=== PATIENT | male | born 1935 ===

== ENCOUNTER 2018-03-09 12:19 | Emergency (ER) | payer MEDICAID, MEDICARE ==
[2018-03-09 12:56] VITALS: TEMP 98.2; O2SAT 98; BMI 24.1
[2018-03-09] MEDS ORDERED: Albuterol-Ipratrop 3 mg / 0.5 (3 ml) UD IH STA (13:14)
--- NOTE | 2018-03-09 13:19 | ED PDOC ---
Arrival/HPI - General Chief Complaint: Cough, Cold, Congestion Time Seen by Provider: 03/09/18 13:03 Historian: Patient - History of Present Illness Narrative History of Present Illness (Text): 03/09/18 13:10 A 82 year old male, whose past medical history includes hypertension and diabetes type 2, presents to the emergency department complaining of cough with greenish sputum for 3 weeks. Patient reports seeing his PMD for symptoms and was given course of Levaquin. However patient has had no relief. Patient denies any fever, chills, shortness of breath, chest pain, back pain, or any other complaints at this time. Denies any history of smoking, admits to occasionally drinking. PMD: Dr. Hawkins Time/Duration: > week (3 weeks) Symptom Onset: Sudden Symptom Course: Unchanged Associated Symptoms (Text): 03/09/18 13:27 Three-week history of a cough productive of green sputum. No better on Levaquin. He has night sweats. Denies fever or chills. No dyspnea. No wheezing. No chest or back pain. Past Medical History - Provider Review Nursing Documentation Reviewed: Yes - Cardiac Hx Hypertension: Yes - Pulmonary Hx Respiratory Disorders: No - Neurological Hx Neurological Disorder: No - HEENT Hx HEENT Disorder: No - Renal Hx Renal Disorder: No - Endocrine/Metabolic Hx Diabetes Mellitus Type 2: Yes - Hematological/Oncological Hx Blood Disorders: No - Integumentary Hx Dermatological Disorder: No - Musculoskeletal/Rheumatological Hx Musculoskeletal Disorders: No - Gastrointestinal Hx Gastrointestinal Disorders: No - Genitourinary/Gynecological Hx Genitourinary Disorders: No - Psychiatric Hx Psychophysiologic Disorder: No Hx Substance Use: No - Surgical History Hx Appendectomy: Yes Family/Social History - Physician Review Nursing Documentation Reviewed: Yes Family/Social History: No Known Family HX Smoking Status: Never Smoked Hx Alcohol Use: No Hx Substance Use: No Allergies/Home Meds Allergies/Adverse Reactions: Allergies No Known Allergies Allergy (Verified 03/09/18 12:56) Review of Systems - Physician Review All systems were reviewed & negative as marked: Yes - Review of Systems Constitutional: absent: Fatigue, Fevers, Night Sweats Respiratory: Cough, Sputum (greenish color). absent: SOB, Wheezing Cardiovascular: absent: Chest Pain Musculoskeletal: absent: Back Pain Neurological: absent: Headache, Dizziness Physical Exam Vital Signs Reviewed: Yes Vital Signs Temp Pulse Resp BP Pulse Ox 03/09/18 12:50 98.2 F 76 16 156/77 H 98 Temperature: Afebrile Blood Pressure: Hypertensive Pulse: Regular Respiratory Rate: Normal Appearance: Positive for: Well-Appearing, Non-Toxic, Comfortable Pain Distress: None Mental Status: Positive for: Alert and Oriented X 3 - Systems Exam Head: Present: Atraumatic, Normocephalic Pupils: Present: PERRL Extroacular Muscles: Present: EOMI Conjunctiva: Present: Normal Ears: Present: NORMAL TM, Normal Canal. No: Erythema, TM Bulging Mouth: Present: Moist Mucous Membranes Pharnyx: No: ERYTHEMA, EXUDATE, TONSILS ENLARGED Neck: Present: Normal Range of Motion Respiratory/Chest: Present: Wheezes (bilaterally), Decreased Breath Sounds, Rhonchi (bilaterally). No: Respiratory Distress, Accessory Muscle Use, Rales, Retracting, Tachypneic Cardiovascular: Present: Regular Rate and Rhythm, Normal S1, S2. No: Murmurs Abdomen: No: Tenderness, Distention, Peritoneal Signs Back: Present: Normal Inspection Upper Extremity: Present: Normal Inspection. No: Cyanosis, Edema Lower Extremity: Present: Normal Inspection. No: Edema Neurological: Present: GCS=15, CN II-XII Intact, Speech Normal, Motor Func Grossly Intact Skin: Present: Warm, Dry, Normal Color. No: Rashes Psychiatric: Present: Alert, Oriented x 3, Normal Insight, Normal Concentration Medical Decision Making ED Course and Treatment: 03/09/18 13:14 Impression: 82 year old male with cough with greenish sputum. Physical exam shows wheezing/rhonchi bilaterally. Plan: -- Chest X-ray -- Duoneb -- Reassess and disposition Progress Notes: 03/09/18 14:11 Patient is feeling better post-DuoNeb. X-ray shows no infiltrate. He will be given inhalers and follow-up with PMD. Follow up in ER as needed. - RAD Interpretation Radiology Orders: 03/09/18 13:14 CHEST TWO VIEWS (PA/LAT) [RAD] Stat Chest 2 view shows no infiltrate effusion or cardiomegaly. Chemist: ED Physician - Medication Orders Current Medication Orders: Discontinued Medications Albuterol/Ipratropium (Duoneb 3 Mg/0.5 Mg (3 Ml) Ud) 3 ml IH ONCE STA Stop: 03/09/18 13:15 Last Admin: 03/09/18 13:25 Dose: 3 ml - Scribe Statement The provider has reviewed the documentation as recorded by the Edgar Little Provider Scribe Attestation: All medical record entries made by the Scribe were at my direction and personally dictated by me. I have reviewed the chart and agree that the record accurately reflects my personal performance of the history, physical exam, medical decision making, and the department course for this patient. I have also personally directed, reviewed, and agree with the discharge instructions and disposition. Disposition/Present on Arrival - Present on Arrival Any Indicators Present on Arrival: No History of DVT/PE: No History of Uncontrolled Diabetes: No Urinary Catheter: No History of Decub. Ulcer: No History Surgical Site Infection Following: None - Disposition Have Diagnosis and Disposition been Completed?: Yes Diagnosis: Asthmatic bronchitis Disposition: HOME/ ROUTINE Disposition Time: 14:12 Patient Plan: Discharge Condition: IMPROVED Discharge Instructions (ExitCare): Asthma in Adults, How to Use Your Metered Dose Inhaler (Adults) Additional Instructions: Follow with PMD. Follow up in ER as needed. Prescriptions: Mometasone [Asmanex Twisthaler] 110 mcg IH DAILY #1 dsk Albuterol HFA [Ventolin HFA 90 mcg/actuation (8 g)] 2 puff IH [id number] #1 puff Forms: [employer] (German)
[2018-03-09 14:25] VITALS: BP 151/80; PULSE 72; RESP 17
--- NOTE | 2018-03-09 15:22 | RAD ---
Date of service: 03/09/2018 HISTORY: cough COMPARISON: No prior. TECHNIQUE: Chest PA and lateral FINDINGS: LUNGS: Hyperinflation, manifestations of COPD. No active pulmonary disease. PLEURA: No significant pleural effusion identified. No pneumothorax apparent. CARDIOVASCULAR: Normal. OSSEOUS STRUCTURES: No significant abnormalities. VISUALIZED UPPER ABDOMEN: Normal. OTHER FINDINGS: None. IMPRESSION: No active disease.
== END 2018-03-09 14:36 | disposition home or self-care (01) ==
LOC: ED 12:19
DX: J45.909 Unspecified asthma, uncomplicated (principal); I10 Essential (primary) hypertension; E11.9 Type 2 diabetes mellitus without complications